=== PATIENT | male | born 1945 | race Caucasian/White ===

== ENCOUNTER 2018-05-21 08:00 | Emergency (ER) | payer OTHER ==
[2018-05-21] MEDS ORDERED: Lidocaine 1% (PF) 30 ML VIAL ONE (08:33)
[2018-05-21] MEDS ORDERED: Bacitracin Zinc 1 Packet ONE (08:40)
[2018-05-21] MEDS ORDERED: Acetaminophen 500 MG TAB ONE (08:42)
[2018-05-21] MEDS ORDERED: Adacel (T-DAP) 0.5 ML VIAL ONE (08:42)
== END 2018-05-21 09:25 ==
LOC: NAV ERS 08:00
DX: S61.412A Laceration without foreign body of left hand, initial encounter (principal); S50.312A Abrasion of left elbow, initial encounter; J44.9 Chronic obstructive pulmonary disease, unspecified; Z87.891 Personal history of nicotine dependence; Z79.899 Other long term (current) drug therapy; I10 Essential (primary) hypertension; W19.XXXA Unspecified fall, initial encounter; Y92.149 Unspecified place in prison as the place of occurrence of the external cause
CPT/HCPCS: 12002; 90471; 90715; J2001

== ENCOUNTER 2018-08-02 07:52 | Emergency (ER) | payer OTHER ==
--- NOTE | 2018-08-02 09:02 | RAD ---
LEFT RIBS TWO VIEWS WITH CHEST ONE VIEW: History: 73-year-old male with history of chest injury from trauma. FINDINGS: There is some left apical pleural thickening. The lungs are borderline hyperinflated. No pneumothorax or pleural effusion. No overt acute rib fracture. No pneumothorax or pleural effusion. IMPRESSION: No convincing evidence for acute left rib fracture. Left apical pleural thickening. Atherosclerosis o f the aorta with ectasia. POS: [facility]
== END 2018-08-02 08:50 | disposition home or self-care (01) ==
LOC: NAV ERS 07:52
DX: S20.222A Contusion of left back wall of thorax, initial encounter (principal); L98.499 Non-pressure chronic ulcer of skin of other sites with unspecified severity; Z87.891 Personal history of nicotine dependence; Z79.51 Long term (current) use of inhaled steroids; W22.8XXA Striking against or struck by other objects, initial encounter